=== PATIENT | female | born 1955 | race Caucasian/White ===

== ENCOUNTER 2017-01-12 05:26 | Day surgery (SDC) | payer BC, OTHER ==
[2017-01-11 09:07] LABS: HEMATOCRIT 41.9 % (36.0-47.0); HEMOGLOBIN 14.3 g/dL (12.0-15.5); MEAN CORPUSCULAR HEMOGLOBIN 30.1 pg (27.0-33.4); MEAN CORPUSCULAR HGB CONC 34.1 g/dL (32.0-36.0); MEAN CORPUSCULAR VOLUME 88 fl (80-97); RED BLOOD COUNT 4.75 10^6/uL (3.72-5.28); RED CELL DISTRIBUTION WIDTH 13.7 % (11.5-14.0); WHITE BLOOD COUNT 9.2 10^3/uL (4.0-10.5)
--- NOTE | 2017-01-11 21:35 | EKG REPORT ---
SEVERITY:- NORMAL ECG - SINUS RHYTHM : Confirmed by: Moraima Hickman 11-Jan-2017 21:35:14
[~2017-01-12 05:26] MED LIST: CIPROFLOXACIN 400 MG/D5W RTU 400 MG/200 ML RTUPB IV PRN; LACTATED RINGERS 1000 ML IV PRN; LIDOCAINE 0.5% INJ-PF (5 MG/ML) 50 ML SDV SUBCUT PRN
[2017-01-12] MEDS ORDERED: LIDOCAINE 1% INJ-PF (10 MG/ML) 30 ML SDV ONE ×2 (06:24→07:52)
[2017-01-12] MEDS ORDERED: LIDOCAINE 1%/EPINEPHRINE INJ 20 ML VIAL ONE (07:22)
[2017-01-12] MEDS ORDERED: LIDOCAINE 0.5%/EPINEPHRINE INJ 50 ML VIAL ONE (07:24)
[2017-01-12] MEDS ORDERED: KETAMINE HCL INJ 500 MG/10 ML VIAL ONE (07:27)
[2017-01-12] MEDS ORDERED: DEXMEDETOMIDINE INJ 80 MCG/20 ML VIAL IV ONE (07:28)
[2017-01-12] MEDS ORDERED: MORPHINE SULFATE 10 MG/ML INJ ONE (07:28)
[2017-01-12] MEDS ORDERED: PROPOFOL INJ 200 MG/20 ML VIAL IV ONE (07:28)
[2017-01-12] MEDS ORDERED: MIDAZOLAM 2 MG/2 ML INJ ONE (07:28)
[2017-01-12] MEDS ORDERED: OXYCODONE-ACETAMINOPHEN 5-325 MG TABLET PO PRN (08:17)
[2017-01-12] MEDS ORDERED: RINGERS SOLUTION,LACTATED 1,000 ML IV PRN (08:17)
[2017-01-12] MEDS ORDERED: MORPHINE SULFATE 10 MG/ML INJ IV PRN (08:17)
[2017-01-12] MEDS ORDERED: ONDANSETRON HCL INJ/PF 4 MG/2 ML SDV IV PRN (08:17)
--- NOTE | 2017-01-12 08:22 | PDOC DISCHARGE SUMMARY ---
Discharge Summary (SDC) - Discharge Final Diagnosis: Left upper back lipoma, intramuscular Date of Surgery: 01/12/17 Discharge Date: 01/12/17 Condition: Good Treatment or Instructions: 1. Avoid heavy lifting pushing pulling 2. Return to clinic to [facility] in 1-2 weeks to see GIRMA Pulliam. 3. Prescription on chart for Tylenol 3; encourage patient to take stool softener and plenty of liquids. Prescriptions: Acetaminophen with Codeine [Tylenol #3 Tablet] 1 each PO Q4HP PRN #20 tablet PRN Reason: Discharge Diet: As Tolerated Discharge Activity: Activity As Tolerated, No Lifting Over 10 Pounds, No Lifting /Push/Pulling Home Care Assistance: None Needed Report the Following to Your Physician Immediately: Shortness of Breath, Increase in Pain, Fever over 101 Degrees
--- NOTE | 2017-01-12 08:26 | Operative Report ---
Operative Report DATE OF SURGERY: 01/12/17 PREOPERATIVE DIAGNOSIS: Intramuscular lipoma of the left upper back POSTOPERATIVE DIAGNOSIS: Same OPERATION: Left upper back deep soft tissue lipoma removal SURGEON: TERESA LAM ANESTHESIA: LMAC TISSUE REMOVED OR ALTERED: Lipoma left upper back, intramuscular COMPLICATIONS: None ESTIMATED BLOOD LOSS: Scant INTRAOPERATIVE FINDINGS: See below PROCEDURE: Patient is seen in the preop holding area where the left upper back lipoma was marked the patient was then taken to the main operating room where LMAC anesthesia was induced with the patient on the gurney. The patient was placed in the right lateral decubitus position left side up. The left upper back lipoma was exposed, prepped and draped in sterile fashion with chlorhexidine Surgical plan surgical timeout were conducted. Anatomically the lipoma was approximately 4 cm in diameter, deep into the soft tissue of the left upper back between the medial border of the scapula, and the spinous processes. The skin was any to 1% plain lidocaine. Approximately 1-1/ 2 inch incision was made transversely over the mass. Subcutaneous tissue divided with electrocautery. The fascia overlying the mass was divided with electrocautery, then the splayed muscle fibers of the trapezius muscle were opened. Deep to the trapezius muscle fibers was the lobulated lipoma. The lipoma was removed in a fragmented fashion and sent to pathology as intramuscular lipoma. Small vascular pedicle was cauterized, and the trapezius muscle closed horizontally with running 2-0 Vicryl suture. Overlying fascia and deep subcutaneous tissue closed with 2-0 Vicryl and skin closed with 3-0 Vicryl benzoin and Steri-Strips. Postop procedure well, taken recovery in stable condition.
[2017-01-12 10:33] VITALS: BP 130/79
[2017-01-12] MEDS ORDERED: GLYCOPYRROLATE INJ 0.4 MG/2 ML VIAL ONE (10:44)
[2017-01-12] MEDS ORDERED: ONDANSETRON HCL INJ/PF 4 MG/2 ML SDV ONE (10:44)
[2017-01-12] MEDS ORDERED: LIDOCAINE 2% INJ-PF (20 MG/ML) 10 ML AMPUL ONE (10:44)
== END 2017-01-12 10:00 | disposition home or self-care (01) ==
LOC: OROUT 05:26
PROVIDERS: ATTEND Surgery
PROC: 0JB70ZZ Excision of Back Subcutaneous Tissue and Fascia, Open Approach (ICD-10-PCS; principal; 2017-01-12 07:30)
DX: D17.9 Benign lipomatous neoplasm, unspecified (principal); E11.9 Type 2 diabetes mellitus without complications; I73.9 Peripheral vascular disease, unspecified; F17.210 Nicotine dependence, cigarettes, uncomplicated; G25.81 Restless legs syndrome; M19.90 Unspecified osteoarthritis, unspecified site; Z96.652 Presence of left artificial knee joint; Z88.0 Allergy status to penicillin; Z88.2 Allergy status to sulfonamides; Z91.040 Latex allergy status; Z87.898 Personal history of other specified conditions; Z79.899 Other long term (current) drug therapy; Z79.82 Long term (current) use of aspirin; Z79.1 Long term (current) use of non-steroidal anti-inflammatories (NSAID)
CPT/HCPCS: 93005; 36415; 82962; 85027; 88304 ×2; 93010; 21932; J2250; J3490 ×5; J2270; J2405; J2704; J0744; 300

== ENCOUNTER → 2017-03-13 | Outpatient (CLI) | payer BC, OTHER ==
[2017-03-13 09:20] LABS: ABSOLUTE BASOPHILS # (AUTO) 0.1 10^3/uL (0.0-0.2); ABSOLUTE EOSINOPHILS # (AUTO) 0.1 10^3/uL (0.0-0.6); ABSOLUTE LYMPHOCYTES (AUTO) 2.5 10^3/uL (0.5-4.7); ABSOLUTE MONOCYTES (AUTO) 0.6 10^3/uL (0.1-1.4); ABSOLUTE NEUT (AUTO) 4.2 10^3/uL (1.7-8.2); BASOPHILS % (AUTO) 1.2 % (0-2); EOSINOPHILS % (AUTO) 1.9 % (0-6); HEMATOCRIT 39.2 % (36.0-47.0); HEMOGLOBIN 13.4 g/dL (12.0-15.5); LYMPHOCYTES % (AUTO) 33.3 % (13-45); MEAN CORPUSCULAR HEMOGLOBIN 30.4 pg (27.0-33.4); MEAN CORPUSCULAR HGB CONC 34.2 g/dL (32.0-36.0); MEAN CORPUSCULAR VOLUME 89 fl (80-97); MONOCYTES % (AUTO) 7.5 % (3-13); RED BLOOD COUNT 4.42 10^6/uL (3.72-5.28); RED CELL DISTRIBUTION WIDTH 13.4 % (11.5-14.0); SEGMENTED NEUTROPHILS % (AUTO) 56.1 % (42-78); WHITE BLOOD COUNT 7.4 10^3/uL (4.0-10.5)
[2017-03-13 09:46] LABS: ALANINE AMINOTRANSFERASE 16 U/L (9-52); ALBUMIN 3.6 g/dL (3.5-5.0); ALKALINE PHOSPHATASE 107 U/L (38-126); ANION GAP 9 (5-19); ASPARTATE AMINO TRANSFERASE 20 U/L (14-36); BILIRUBIN,DIRECT 0.4 mg/dL (0.0-0.4); BILIRUBIN,TOTAL 0.5 mg/dL (0.2-1.3); BLOOD UREA NITROGEN 9 mg/dL (7-20); CALCIUM 9.5 mg/dL (8.4-10.2); CARBON DIOXIDE 29 mmol/L (22-30); CHLORIDE 103 mmol/L (98-107); CHOLESTEROL 216.38 mg/dL (0-200); CREATININE RESULT 0.76 mg/dL (0.52-1.25); Direct HDL 48 mg/dL (>40); GLUCOSE 234 mg/dL (75-110); POTASSIUM 4.3 mmol/L (3.6-5.0); SODIUM 140.9 mmol/L (137-145); TOTAL PROTEIN 6.1 g/dL (6.3-8.2); TRIGLYCERIDES 216 mg/dL (<150)
[2017-03-13 09:57] LABS: DIRECT LDL 133 mg/dL (<100)
[2017-03-13 10:05] LABS: VLDL CHOLESTEROL 43.2 mg/dL (10-31)
--- NOTE | 2017-03-13 10:30 | RADIOLOGY REPORT (SQ) ---
EXAM DESCRIPTION: HIP LEFT AP/LATERAL COMPLETED DATE/TIME: 03/13/2017 9:34 am REASON FOR STUDY: PAIN IN LEFT HIP E11.9 TYPE 2 DIABETES MELLITUS WITHOUT COMPLICATIONS I10 ESSENT IAL (PRIMARY) HYPERTENSION E78.5 HYPERLIPIDEMIA, UNSPECIFIED COMPARISON: CT abdomen pelvis 01/27/2016 NUMBER OF VIEWS: Two views. TECHNIQUE: AP pelvis and additional frog-leg view of the left hip. LIMITATIONS: None. FINDINGS: MINERALIZATION: Osteopenic LEFT HIP: No fracture or dislocation. Mild left hip joint space narrowing, mild left femoral head os teophyte formation. RIGHT HIP: No fracture or dislocation. No significant left hip joint space narrowing or bulky bony s purring. PUBIS AND ISCHIUM: No fracture. PELVIS: No fracture. SACRUM: No fracture or dislocation. No worrisome bone lesions. LOWER LUMBAR SPINE: Degenerative disc space loss of height at L4-5 and L5-S1. SOFT TISSUES: No findings. OTHER: No other significant finding. IMPRESSION: Bones are osteopenic. No acute fracture or malalignment. Very mild left hip joint space narrowing and bony spurring. TECHNICAL DOCUMENTATION: JOB ID: [id number] [employer]- All Rights Reserved
--- NOTE | 2017-03-13 10:41 | RADIOLOGY REPORT (SQ) ---
EXAM DESCRIPTION: CHEST PA/LATERAL COMPLETED DATE/TIME: 03/13/2017 9:34 am REASON FOR STUDY: PNEUMONIA, UNSPECIFIED ORGANISM COMPARISON: AP chest 01/13/2010, 06/01/2015 EXAM PARAMETERS: NUMBER OF VIEWS: two views TECHNIQUE: Digital Frontal and Lateral radiographic views of the chest acquired. RADIATION DOSE: NA LIMITATIONS: none FINDINGS: LUNGS AND PLEURA: No opacities, masses or pneumothorax. No pleural effusion. MEDIASTINUM AND HILAR STRUCTURES: No masses or contour abnormalities. HEART AND VASCULAR STRUCTURES: Heart normal size. No evidence for failure. BONES: No acute findings. HARDWARE: None in the chest. OTHER: No other significant finding. IMPRESSION: NO SIGNIFICANT RADIOGRAPHIC FINDING IN THE CHEST. TECHNICAL DOCUMENTATION: JOB ID: [id number] [employer]- All Rights Reserved
--- NOTE | 2017-03-13 11:26 | RADIOLOGY REPORT (SQ) ---
EXAM DESCRIPTION: SACRUM AND COCCYX COMPLETED DATE/TIME: 03/13/2017 9:34 am REASON FOR STUDY: LOW BACK PAIN E11.9 TYPE 2 DIABETES MELLITUS WITHOUT COMPLICATIONS I10 ESSENTIAL (PRIMARY) HYPERTENSION E78.5 HYPERLIPIDEMIA, UNSPECIFIED COMPARISON: Lumbar spine films same date, left hip films same date CT abdomen pelvis 01/27/2016 NUMBER OF VIEWS: Three views. TECHNIQUE: AP, lateral, and tilt views of the sacrum and coccyx. LIMITATIONS: None. FINDINGS: MINERALIZATION: Osteopenic BONES: No acute fracture or dislocation. No worrisome bone lesions. SOFT TISSUES: No soft tissue swelling. No foreign body. OTHER: There is disc space loss of height and mild osteophyte formation at L5-S1 IMPRESSION: No acute changes of the sacrum and coccyx. No SI joint arthropathy. TECHNICAL DOCUMENTATION: JOB ID: [id number] [employer]- All Rights Reserved
--- NOTE | 2017-03-13 11:32 | RADIOLOGY REPORT (SQ) ---
EXAM DESCRIPTION: LUMBAR SPINE COMPLETE COMPLETED DATE/TIME: 03/13/2017 9:34 am REASON FOR STUDY: LOW BACK PAIN E11.9 TYPE 2 DIABETES MELLITUS WITHOUT COMPLICATIONS I10 ESSENTIAL (PRIMARY) HYPERTENSION E78.5 HYPERLIPIDEMIA, UNSPECIFIED COMPARISON: CT abdomen pelvis 06/01/2015, 01/17/2016 NUMBER OF VIEWS: Five views including obliques. TECHNIQUE: AP, lateral, oblique, and sacral radiographic images acquired of the lumbar spine. LIMITATIONS: None. FINDINGS: MINERALIZATION: Normal. SEGMENTATION: Normal. No transitional anatomy. ALIGNMENT: Mild convex rightward lumbar curvature VERTEBRAE: Maintained height. No fracture or worrisome bone lesion. DISCS: Mild disc space loss of height at L4-5 and L5-S1. POSTERIOR ELEMENTS: Pedicles and facets are intact. No pars defect or posterior arch defects. Mild bilateral facet arthropathy at L3-4, L4-5, moderate bilateral facet arthropathy at L5-S1. HARDWARE: None in the spine. Clips right upper quadrant post cholecystectomy. Stable 2 cm right upp er quadrant calcification unchanged from prior CT exams. PARASPINAL SOFT TISSUES: Normal. PELVIS: Intact as visualized. No fractures or worrisome bone lesions. SI joints intact. OTHER: No other significant finding. IMPRESSION: Lower lumbar disc space loss of height with facet arthropathy TECHNICAL DOCUMENTATION: JOB ID: [id number] [employer]- All Rights Reserved
[2017-03-14 15:32] LABS: CREATININE URINE 27.2 mg/dL (Not Estab.)
[2017-03-14 16:17] LABS: MICROALBUMIN URINE <3.0 ug/mL (Not Estab.)
== END ==
LOC: OD 08:27
PROVIDERS: ATTEND Family Medicine Geriatric Medicine
DX: J18.9 Pneumonia, unspecified organism (principal); M25.552 Pain in left hip; M54.5 Low back pain; E11.9 Type 2 diabetes mellitus without complications; I10 Essential (primary) hypertension; E78.5 Hyperlipidemia, unspecified; J44.9 Chronic obstructive pulmonary disease, unspecified; Z79.899 Other long term (current) drug therapy
CPT/HCPCS: 36415; 71020; 72110; 72220; 80053; 80061; 82043; 82570; 83036; 84443; 85025

== ENCOUNTER → 2017-06-28 | Outpatient (CLI) | payer BC, OTHER ==
--- NOTE | 2017-06-28 16:22 | WOMENS IMAGING REPORT ---
EXAM DESCRIPTION: BILAT SCREENING MAMMO W/CAD COMPLETED DATE/TIME: 06/28/2017 2:33 pm REASON FOR STUDY: SCREENING MAMMO Z12.31 ENCNTR SCREEN MAMMOGRAM FOR MALIGNANT NEOPLASM OF JENNY COMPARISON: 2012 to 2014 TECHNIQUE: Standard craniocaudal and mediolateral oblique views of each breast recorded using digita l acquisition. LIMITATIONS: None. FINDINGS: No masses, calcifications or architectural distortion. No areas of suspicion. Read with the assistance of CAD. .[facility] - R2 [employer] Version 1.3 .[facility] - R2 C[employer] Version 1.3 .[facility] - R2 C[employer]ova Version 2.4 .[facility] - R2 Cenova Version 2.4 .[facility] - R2 [employer] Drum Cutter Version 9.2 IMPRESSION: NORMAL MAMMOGRAM. BIRADS 1. BREAST DENSITY: b. There are scattered areas of fibroglandular density. BIRAD: 1 NEGATIVE RECOMMENDATION: ROUTINE SCREENING COMMENT: The patient has been notified of the results by letter per MQSA requirements. Additional no tification policies are in place for contacting patient with suspicious or incomplete findings. Quality ID #[id number]: The [employer] recommends an annual screening mammogram for women aged 40 years or over. This facility utilizes a reminder system to ensure that all patients receive reminder letters, and/or direct phone calls for appointments. This includes reminders for routine scr eening mammograms, diagnostic mammograms, or other Breast Imaging Interventions when appropriate. Th is patient will be placed in the appropriate reminder system. The [employer] (ACR) has developed recommendations for screening MRI of the breast s in certain patient populations, to be used in conjunction with mammography. Breast MRI surveillanc e may be appropriate for women with more than 20% lifetime risk of developing breast cancer as deter mined by genetic testing, significant family history of the disease, or history of mantle radiation f or Hodgkins Disease. ACR Practice Guidelines 2008. TECHNICAL DOCUMENTATION: FINDING NUMBER: (1) ASSESSMENT: (1) JOB ID: [id number] [employer]- All Rights Reserved
== END ==
LOC: WI 13:37
PROVIDERS: ATTEND Internal Medicine
DX: Z12.31 Encounter for screening mammogram for malignant neoplasm of breast (principal)
CPT/HCPCS: 77067; G0202

== ENCOUNTER → 2017-09-20 | Outpatient (CLI) | payer BC, OTHER ==
--- NOTE | 2017-09-21 07:51 | XCELERA REPORT ---
[address] [address] Lower Extremity Arterial Evaluation Name: LEIGHA TATE Age: 62 yrs Gender: Female : 1955 Patient Status: Outpatient Patient Location: Study Date: 09/20/2017 02:46 PM Procedure: A color flow and duplex scan of the lower extremity arteries was performed bilaterally with velocity and waveform anaylsis. Reason For Study: PVD Ordering Physician: SURI GARCIA Performed By: Maru Tucker Measurements and Calculations Right Left ATTENDANCE CLERK PSV 73.5 85.0 cm/sec Prox PFA PSV -73.9 -92.3 cm/sec Prox SFA PSV 110.8 -130.4 cm/sec Mid SFA PSV -107.0 -108.6 cm/sec Dist SFA PSV -94.3 -84.4 cm/sec Prox Pop A PSV 69.1 89.3 cm/sec Dist JOSHUA PSV 19.1 86.4 cm/sec Dist WRAPPER DIPPER PSV 98.2 121.9 cm/sec Oscar Pedis PSV 35.2 93.5 cm/sec Right Side Arterial Evaluation Normal velocity and triphasic waveforms noted from the Common Femoral artery to the Posterior Tibial artery . Biphasic in the Anterior Tibial artery. 0-19% stenosis at the Anterior Tibial artery. Ankle Brachial index is 1.2. Left Side Arterial Evaluation Normal velocity and triphasic waveforms noted from the Common Femoral artery to the infregeniculate vessels. 0 % stenosis. Ankle Brachial index is 1.3. Interpretation Summary Mild hemodynamically significant lesions in the right lower extremity only, on duplex imaging, at rest. No hemodynamically significant lesions in the left lower extremity only, on duplex imaging, at rest. : SURI GARCIA > Jose Ramon Alvarez
== END ==
LOC: SP 14:30
PROVIDERS: ATTEND Preventive Medicine Undersea and Hyperbaric Medicine
DX: I73.9 Peripheral vascular disease, unspecified (principal)
CPT/HCPCS: 93925

== ENCOUNTER → 2019-05-12 | Outpatient (CLI) | payer BC, OTHER ==
--- NOTE | 2019-05-13 08:38 | WOMENS IMAGING REPORT ---
EXAM DESCRIPTION: 3D SCREENING MAMMO BILAT COMPLETED DATE/TIME: 05/12/2019 3:53 pm REASON FOR STUDY: Z12.31 ENCOUNTER FOR SCREENING MAMMOGRAM FOR MALIGNANT NEOPLASM OF BREAST Z12.31 ENCNTR SCREEN MAMMOGRAM FOR MALIGNANT NEOPLASM OF JENNY COMPARISON: 2014 to 2016 EXAM PARAMETERS: Views: Standard craniocaudal and mediolateral oblique views of each breast recorded using digital acquisition and breast tomosynthesis. Read with the assistance of CAD. .[facility] - [employer] Char Filter Tank Tender Version 9.2 LIMITATIONS: None. FINDINGS: No suspicious masses, suspicious calcifications or architectural distortion. No areas of c oncern. IMPRESSION: NEGATIVE MAMMOGRAM. BIRADS 1. BREAST DENSITY: b. There are scattered areas of fibroglandular density. BIRAD: ASSESSMENT: 1 NEGATIVE RECOMMENDATION: ROUTINE SCREENING COMMENT: The patient has been notified of the results by letter per MQSA requirements. Additional no tification policies are in place for contacting patient with suspicious or incomplete findings. Quality ID #225: The [employer] recommends an annual screening mammogram for women aged 40 years or over. This facility utilizes a reminder system to ensure that all patients receive reminder letters, and/or direct phone calls for appointments. This includes reminders for routine scr eening mammograms, diagnostic mammograms, or other Breast Imaging Interventions when appropriate. Th is patient will be placed in the appropriate reminder system. TECHNICAL DOCUMENTATION: FINDING NUMBER: (1) ASSESSMENT: (1) JOB ID: [id number] [employer]- All Rights Reserved Reading location - IP/workstation name: [email or web address]
== END ==
LOC: WI 15:26
PROVIDERS: ATTEND Physician Assistant
DX: Z12.31 Encounter for screening mammogram for malignant neoplasm of breast (principal)
CPT/HCPCS: 77063; 77067

== ENCOUNTER → 2020-05-25 | Outpatient (CLI) | payer BC, OTHER ==
--- NOTE | 2020-05-25 12:30 | WOMENS IMAGING REPORT ---
EXAM DESCRIPTION: BILAT SCREENING MAMMO W/CAD IMAGES COMPLETED DATE/TIME: 05/25/2020 11:32 am REASON FOR STUDY: Z12.31 ENCOUNTER FOR SCREENING MAMMOGRAM FOR MALIGNANT NEOPLASM OF BREAST Z12.31 ENCNTR SCREEN MAMMOGRAM FOR MALIGNANT NEOPLASM OF JENNY COMPARISON: Priors back to 2014 EXAM PARAMETERS: Standard craniocaudal and mediolateral oblique views of each breast recorded using digital acquisition. Read with the assistance of CAD. .[facility] - [employer] Patrol Police Sergeant Version 9.2 LIMITATIONS: None. FINDINGS: No suspicious masses, suspicious calcifications or architectural distortion. No areas of c oncern. IMPRESSION: NEGATIVE MAMMOGRAM. BIRADS 1 BREAST DENSITY: b. There are scattered areas of fibroglandular density. BIRAD: ASSESSMENT: 1 NEGATIVE RECOMMENDATION: ROUTINE SCREENING COMMENT: The patient has been notified of the results by letter per MQSA requirements. Additional no tification policies are in place for contacting patient with suspicious or incomplete findings. Quality ID #[id number]: The [employer] recommends an annual screening mammogram for women aged 40 years or over. This facility utilizes a reminder system to ensure that all patients receive reminder letters, and/or direct phone calls for appointments. This includes reminders for routine scr eening mammograms, diagnostic mammograms, or other Breast Imaging Interventions when appropriate. Th is patient will be placed in the appropriate reminder system. TECHNICAL DOCUMENTATION: FINDING NUMBER: (1) ASSESSMENT: (1) JOB ID: [id number] [employer]- All Rights Reserved Reading location - IP/workstation name: [email or web address]
== END ==
LOC: WI 11:13
PROVIDERS: ATTEND Physician Assistant
DX: Z12.31 Encounter for screening mammogram for malignant neoplasm of breast (principal)
CPT/HCPCS: 77067